=== PATIENT | female | born 1980 | race Caucasian/White ===

== ENCOUNTER 2019-05-10 10:22 | Outpatient (CLI) | payer OTHER ==
--- NOTE | 2019-05-10 12:44 | ULT ---
OB ULTRASOUND: HISTORY: anatomy. FINDINGS: Single viable intrauterine . Gestational age by ultrasound 20 weeks 6 days. BPD: 21 weeks 0 days HC: 20 weeks 2 days AC: 20 weeks 4 days FL: 21 weeks 1 day EFW: 372 gm, 21 weeks 0 days. heart rate: 158 b.p.m. Placenta: Anterior. Presentation: Vertex. Amniotic fluid: Adequate. SELENE 13 cm. Cervical length: 3.6 cm. ANATOMY: Intracranial contents, 4-chamber heart, stomach, kidneys, cord insertion, bladder, spine, bilateral u pper and lower extremities, and 3-vessel cord were all imaged. Facial features including lips and no se were not imaged due to positioning. IMPRESSION: A 20-week 6-day gestation by ultrasound. No abnormality identified. POS: [facility]
== END 2019-05-10 10:23 | disposition home or self-care (01) ==
LOC: BICULT 10:22
PROVIDERS: ATTEND Family Medicine
DX: O09.522 Supervision of elderly multigravida, second trimester (principal); Z3A.20 20 weeks gestation of pregnancy
CPT/HCPCS: 76805

== ENCOUNTER 2019-07-09 17:05 | Day surgery (SDC) | payer OTHER | END 2019-07-09 18:30 | disposition home health service (06) | LOC: L&D/OP 17:05 | PROVIDERS: ATTEND Family Medicine | DX: O36.8190 Decreased fetal movements, unspecified trimester, not applicable or unspecified (principal); Z3A.00 Weeks of gestation of pregnancy not specified; Z88.5 Allergy status to narcotic agent ==

== ENCOUNTER 2019-08-01 15:26 | Observation (INO) | payer MEDICAID, OTHER ==
[2019-08-01 16:05] VITALS: BP 124/78; TEMP 98.6; BMI 28.5
[2019-08-01] MEDS ORDERED: Promethazine HCl 25 MG/ML VIAL IM PRN (16:19)
[2019-08-01] MEDS ORDERED: Ondansetron PF 4 MG/2 ML Vial IVP PRN (16:19)
[2019-08-01] MEDS ORDERED: Acetaminophen 500 MG TAB PO PRN (16:19)
[2019-08-01] MEDS ORDERED: hydrALAZINE 20 MG/ML VIAL SLOW IVP PRN (16:19)
[2019-08-01 17:21] LABS: #Eosinphils 0.2 thou/uL (0.0-0.7); #Lymphocytes 1.5 thou/uL (1.20-3.40); #Monocytes 0.7 thou/uL (0.11-0.59); #Neutrophils 8.7 thou/uL (1.40-6.50); %Basophils 0.3 % (0.0-1.0); %Eosinophils 1.6 % (0.0-10.0); %Lymphocytes 13.2 % (21.0-51.0); %Monocytes 6.7 % (0.0-10.0); %Neutrophils 78.2 % (42.0-75.0); Hemoglobin 12.5 g/dL (12.0-16.0); Mean Corpuscular HGB CONC 34.8 g/dL (32.0-36.0); Mean Corpuscular Hemoglobin 31.2 pg (27.0-31.0); Mean Corpuscular Volume 89.6 fL (78.0-98.0); Mean Platelet Volume 8.2 fL (7.4-10.4); Platelet Count 221 thou/uL (130-400); RBC Distribution Width 12.4 % (11.5-14.5); Red Blood Cell (RBC) Count 4.01 mill/uL (4.20-5.40); White Blood Cell (WBC) Count 11.1 thou/uL (4.8-10.8)
--- NOTE | 2019-08-01 17:22 | ULT ---
ULTRASOUND OBSTETRICAL COMPLETE: DATE: 08/01/2019 HISTORY: 39-year-old female. Advanced maternal age. Dyspnea. FINDINGS: number: cmapos lie: Cephalic Maternal cervix: Poorly visualized Placenta: Anterior. No placenta previa. Amniotic fluid volume: SELENE = 12.5cm heart rate: 157 bpm The following anatomy is visualized, with no evidence of anomalies: Head, stomach, bladder. The rest of the anatomy is not well visualized. biometry: Biparietal diameter (BPD): 8.2 cm 32 w 3 d Head circumference (HC): 29.0 cm 32 w 0 d Abdominal circumference (AC): 27.7 cm 31 w 5 d Femur length (FL): 6.1 cm 31 w 6 d Average ultrasound age (AUA): 32 w 0 d Estimated date of delivery (VLADIMIR): 09/26/2019 Estimated weight (EFW): 1855 g +/- 275 g IMPRESSION: 1) Live 3rd trimester intrauterine gestation. 2) Estimated gestational age of 32 weeks, 0 days 3) cephalic lie. 4) most of the anatomy not visualized because of third trimester stage of .
[2019-08-01 17:44] LABS: ALT (SGPT) 10 U/L (8-55); AST (SGOT) 11 U/L (5-34); Albumin 3.2 g/dL (3.5-5.0); Alkaline Phosphatase 93 U/L (40-110); Anion Gap 12 mmol/L (10-20); BUN (Urea Nitrogen) 6 mg/dL (7.0-18.7); Bilirubin, Total 0.3 mg/dL (0.2-1.2); Calc. Creatinine Clearance 188 mL/min (70-130); Carbon Dioxide 18 mmol/L (22-29); Chloride 109 mmol/L (98-107); Estimated GFR-MDRD Greater than 90; Globulin 2.4 g/dL (2.4-3.5); Glucose 75 mg/dL (70-105); Potassium 3.8 mmol/L (3.5-5.1); Protein, Total 5.6 g/dL (6.0-8.3); Sodium 135 mmol/L (136-145)
[2019-08-02] MEDS ORDERED: Lactated Ringer's 1,000 ML IV SCH (06:00)
--- NOTE | 2019-08-02 16:29 | EKG ---
Test Reason : Blood Pressure : / mmHG Vent. Rate : 085 BPM Atrial Rate : 085 BPM P-R Int : 138 ms QRS Dur : 074 ms QT Int : 346 ms P-R-T Axes : 024 017 031 degrees QTc Int : 411 ms Normal sinus rhythm Normal ECG No previous ECGs available Confirmed by DR. Dori MELENDEZ ([id number]) on 08/02/2019 4:28:27 PM Referred By: Confirmed By:DR. Dori MELENDEZ
== END 2019-08-02 15:15 | disposition home health service (06) ==
LOC: L&D 15:26
PROVIDERS: ADMIT Family Medicine; ATTEND Family Medicine
DX: O99.89 Other specified diseases and conditions complicating pregnancy, childbirth and the puerperium (principal); R06.00 Dyspnea, unspecified; R00.2 Palpitations; O09.523 Supervision of elderly multigravida, third trimester; Z3A.31 31 weeks gestation of pregnancy; Z88.5 Allergy status to narcotic agent
CPT/HCPCS: 36415; 76815; 80053; 85025; 93005; 93010; 93306; 99285; G0378

== ENCOUNTER 2019-08-20 14:56 | Inpatient (IN) | payer OTHER ==
[~2019-08-20 14:56] MED LIST: Lidocaine 2% MPF 10 ML AMP (For Epidural Use) ONE; ePHEDrine/0.9% NaCl/PF SYRINGE 50 mg/10 ml ONE
[2019-08-20] MEDS ORDERED: Promethazine HCl 25 MG/ML VIAL IM PRN (15:12)
[2019-08-20] MEDS ORDERED: NS / Oxytocin 40 units/1000ml 1,000 ML IV PRN (15:12)
[2019-08-20] MEDS ORDERED: hydrALAZINE 20 MG/ML VIAL SLOW IVP PRN (15:12)
[2019-08-20] MEDS ORDERED: Misoprostol 200 MCG TAB PR PRN (15:12)
[2019-08-20] MEDS ORDERED: Ondansetron PF 4 MG/2 ML Vial IVP PRN (15:12)
[2019-08-20] MEDS ORDERED: Carboprost 250 MCG/ML AMP IM PRN (15:12)
[2019-08-20] MEDS ORDERED: Lidocaine 1% (PF) 30 ML VIAL SC PRN (15:12)
[2019-08-20] MEDS ORDERED: Diphenoxylate HCl/Atropine Tablet PO PRN ×2 (15:12)
[2019-08-20] MEDS ORDERED: Ibuprofen 800 MG TAB PO PRN (15:12)
[2019-08-20] MEDS ORDERED: Methylergonovine 0.2 MG/ML VIAL IM PRN (15:12)
[2019-08-20] MEDS ORDERED: Penicillin G 2.5 MILL.units 2.5 MILL.UNITS in Premix Bag 1 BAG IVPB SCH (15:15)
[2019-08-20] MEDS ORDERED: Penicillin G Potassium 5 MILL.UNITS in Sodium Chloride 0.9% 100 ML IVPB SCH (15:15)
[2019-08-20 15:22] VITALS: BMI 28.7
[2019-08-20] MEDS: Lactated Ringer's 1,000 ML IV SCH ×2 (15:52→21:34)
[2019-08-20] MEDS ORDERED: Azithromycin 250 MG TAB PO SCH (16:01)
[2019-08-20] MEDS: Betamet Acet/Betamet Na Ph 30 MG/5 ML VIAL IM SCH (16:03)
[2019-08-20 16:30] LABS: Hemoglobin 12.5 g/dL (12.0-16.0); Mean Corpuscular HGB CONC 34.3 g/dL (32.0-36.0); Mean Corpuscular Hemoglobin 31.1 pg (27.0-31.0); Mean Corpuscular Volume 90.5 fL (78.0-98.0); Platelet Count 202 thou/uL (130-400); RBC Distribution Width 12.5 % (11.5-14.5); Red Blood Cell (RBC) Count 4.04 mill/uL (4.20-5.40); White Blood Cell (WBC) Count 8.8 thou/uL (4.8-10.8)
[2019-08-20] MEDS: Ampicillin 2 GM in Sodium Chloride 0.9% 100 ML IVPB SCH ×2 (17:02→23:56)
[2019-08-20 17:11] LABS: HBSAg Index 0.36 S/CO (0-0.99); Hep B Surf Ag Non-Reactive S/CO (NonReactive); Syphilis Antibody Nonreactive (Nonreactive); Syphilis Antibody Index 0.02 S/CO (<1.00 Non-Reactive)
[2019-08-20] MEDS ORDERED: Butorphanol Tartrate 1 MG/ML VIAL SLOW IVP PRN (21:24)
[2019-08-20] MEDS ORDERED: diphenhydrAMINE 50 MG/ML VIAL ONE (21:50)
[2019-08-21] MEDS: Ampicillin 2 GM in Sodium Chloride 0.9% 100 ML IVPB SCH ×3 (06:02→18:30)
[2019-08-21] MEDS: Acetaminophen 500 MG TAB PO PRN ×2 (08:48→19:44)
[2019-08-21] MEDS ORDERED: FLU VACC QS2019-20(6MOS UP)/PF 60 MCG/0.5 ML SYRINGE IM ONE (09:00)
[2019-08-21] MEDS: Lactated Ringer's 1,000 ML IV SCH ×3 (09:42→13:42)
[2019-08-21] MEDS: Betamet Acet/Betamet Na Ph 30 MG/5 ML VIAL IM SCH (16:00)
[2019-08-21] MEDS ORDERED: Lidocaine 1% (PF) 30 ML VIAL SC PRN (17:19)
[2019-08-21] MEDS ORDERED: hydrOXYzine Pamoate 25 mg Capsule PO SCH (22:00)
[2019-08-22] MEDS: Ampicillin 2 GM in Sodium Chloride 0.9% 100 ML IVPB SCH ×4 (00:33→18:00)
[2019-08-22] MEDS: Lactated Ringer's 1,000 ML IV SCH ×4 (00:33→16:48)
[2019-08-22] MEDS ORDERED: NS w/ Oxytocin 10 units 500 ML IV SCH ×2 (06:00)
[2019-08-22 06:20] LABS: Hemoglobin 10.9 g/dL (12.0-16.0); Mean Corpuscular Hemoglobin 31.1 pg (27.0-31.0); Mean Corpuscular Volume 91.6 fL (78.0-98.0); Mean Platelet Volume 7.8 fL (7.4-10.4); Platelet Count 192 thou/uL (130-400); RBC Distribution Width 12.6 % (11.5-14.5); Red Blood Cell (RBC) Count 3.49 mill/uL (4.20-5.40); White Blood Cell (WBC) Count 12.5 thou/uL (4.8-10.8)
[2019-08-22] MEDS ORDERED: Fentanyl 4 mcg/Bup 0.1% Cadd 100 ML ONE ×2 (08:21→15:36)
[2019-08-22] MEDS ORDERED: Promethazine HCl 25 MG/ML VIAL IM PRN (09:22)
[2019-08-22] MEDS ORDERED: diphenhydrAMINE 50 MG/ML VIAL IVP PRN (09:22)
[2019-08-22] MEDS ORDERED: Lactated Ringer's 500 ML IV PRN (09:22)
[2019-08-22] MEDS ORDERED: Acetaminophen 325 MG TAB PO PRN (09:22)
[2019-08-22] MEDS ORDERED: Naloxone HCl 0.4 mg/ml Vial IVP PRN ×2 (09:22)
[2019-08-22] MEDS ORDERED: ePHEDrine/0.9% NaCl/PF SYRINGE 50 mg/10 ml SLOW IVP PRN (09:22)
[2019-08-22] MEDS ORDERED: Ondansetron PF 4 MG/2 ML Vial IVP PRN ×2 (09:22→20:33)
[2019-08-22] MEDS ORDERED: Communication Order-Pharmacy FS SCH (09:30)
[2019-08-22] MEDS ORDERED: Fentanyl 4 mcg/Bupivacaine 0.1% Cassette 100 ML EPIDURAL SCH (09:30)
[2019-08-22 20:31] LABS: Actual Bicarbonate (HCO3a) 24.5 mEq/L (22-28); Base Excess (BEa) -4.2 mEq/L (-2.0 to +3.0)
[2019-08-22] MEDS ORDERED: hydrALAZINE 20 MG/ML VIAL SLOW IVP PRN (20:33)
[2019-08-22] MEDS ORDERED: Milk Of Magnesia 30 ML UDCUP PO PRN (20:33)
[2019-08-22] MEDS ORDERED: Bisacodyl 10 MG SUPP PR PRN (20:33)
[2019-08-22] MEDS ORDERED: Lanolin Ointment 7 GM TUBE TOP PRN (20:33)
[2019-08-22] MEDS ORDERED: HYDROcodone/Acetaminophen 5/325 mg Tablet PO PRN ×2 (20:33)
[2019-08-22] MEDS ORDERED: Benzocaine-Menthol 82.5 ML CAN TOP PRN (20:33)
[2019-08-22] MEDS ORDERED: NS / Oxytocin 40 units/1000ml 1,000 ML IV SCH (20:33)
[2019-08-22] MEDS ORDERED: diphenhydrAMINE 25 MG CAP PO PRN (20:33)
[2019-08-22 20:37] LABS: Actual Bicarbonate (HCO3v) 24 mEq/L (22-28); Base Excess -3.9 mEq/L (-2.0 to +3.0); pH (Cord, venous) 7.26 (7.32-7.43)
[2019-08-22] MEDS: Docusate Calcium (SURFAK) 240 MG CAP PO SCH (23:17)
[2019-08-22] MEDS: Ibuprofen 800 MG TAB PO SCH (23:17)
[2019-08-23 05:53] LABS: Hemoglobin 10.5 g/dL (12.0-16.0); Mean Corpuscular HGB CONC 33.8 g/dL (32.0-36.0); Mean Corpuscular Hemoglobin 31.5 pg (27.0-31.0); Mean Corpuscular Volume 93.1 fL (78.0-98.0); Mean Platelet Volume 7.9 fL (7.4-10.4); Platelet Count 194 thou/uL (130-400); RBC Distribution Width 12.6 % (11.5-14.5); Red Blood Cell (RBC) Count 3.33 mill/uL (4.20-5.40); White Blood Cell (WBC) Count 13.5 thou/uL (4.8-10.8)
[2019-08-23] MEDS: Ibuprofen 800 MG TAB PO SCH ×3 (06:06→21:46)
[2019-08-23] MEDS: Ferrous Sulfate 325 MG TAB PO SCH ×2 (07:42→15:13)
[2019-08-23] MEDS: Betamet Acet/Betamet Na Ph 30 MG/5 ML VIAL IM SCH (07:43)
[2019-08-23] MEDS ORDERED: Adacel (T-DAP) 0.5 ML SYRINGE IM ONE (09:00)
[2019-08-23] MEDS: Prenatal Vitamin 1 TAB PO SCH (10:21)
[2019-08-23] MEDS: Docusate Calcium (SURFAK) 240 MG CAP PO SCH ×2 (10:22→21:46)
[2019-08-24] MEDS: Ibuprofen 800 MG TAB PO SCH (07:45)
[2019-08-24 08:22] VITALS: BP 110/56; TEMP 98.9
[2019-08-24] MEDS: Ferrous Sulfate 325 MG TAB PO SCH (08:35)
[2019-08-24] MEDS: Docusate Calcium (SURFAK) 240 MG CAP PO SCH (09:57)
[2019-08-24] MEDS: Prenatal Vitamin 1 TAB PO SCH (09:57)
== END 2019-08-24 12:40 | disposition home or self-care (01) | DRG 807 ==
LOC: L&D/OP 14:56 → L&D 15:50 → 3SW 08-22 22:37
PROVIDERS: ADMIT Family Medicine; ATTEND Family Medicine
PROC: 10E0XZZ Delivery of Products of Conception, External Approach (ICD-10-PCS; principal; 2019-08-22)
DX: O42.013 Preterm premature rupture of membranes, onset of labor within 24 hours of rupture, third trimester (principal); Z37.0 Single live birth; Z3A.34 34 weeks gestation of pregnancy
CPT/HCPCS: 36415; 51702; 82805; 85027; 86780; 86850; 86900; 86901; 87340; 88307; 90715; 99285; J0290; J0595; J0702; J1200; J2001; J2405; J2590; J3490; Q0163; Q0177

== ENCOUNTER 2020-06-17 12:47 | Outpatient (CLI) | payer OTHER ==
--- NOTE | 2020-06-17 14:01 | MRI ---
MRI RIGHT KNEE 06/17/20 PROVIDED CLINICAL HISTORY: Right knee pain. FINDINGS: The anterior cruciate ligament, posterior cruciate ligament, medial collateral ligament and lateral c ollateral ligamentous complex demonstrate an intact MR appearance, as does the extensor mechanism. The medial and lateral menisci demonstrate no evidence for tear. No focal articular cartilage defect is apparent. The amount of fluid within the knee joint appears physiologic. No focal concerning regional marrow of muscular signal abnormality is evident. IMPRESSION: No evidence for internal derangement. POS: [facility]
== END 2020-06-17 12:48 | disposition home or self-care (01) ==
LOC: BICMRI 12:47
PROVIDERS: ATTEND Family Medicine
DX: M25.561 Pain in right knee (principal)

== ENCOUNTER 2021-11-23 14:32 | Outpatient (CLI) | payer OTHER | END 2021-11-23 14:33 | disposition home or self-care (01) | LOC: ULT 14:32 | PROVIDERS: ATTEND Student in an Organized Health Care Education/Training Program | DX: U09.9 Post COVID-19 condition, unspecified (principal); R00.0 Tachycardia, unspecified; I35.1 Nonrheumatic aortic (valve) insufficiency | CPT/HCPCS: 93306 ==

== ENCOUNTER 2025-03-18 12:49 | Outpatient (CLI) | payer BC, OTHER | END 2025-03-18 12:50 | disposition home or self-care (01) | LOC: RAD 12:49 | PROVIDERS: ATTEND Internal Medicine | DX: R06.00 Dyspnea, unspecified (principal) | CPT/HCPCS: 71046 ==